=== PATIENT | female | born 1955 | race Caucasian/White ===

== ENCOUNTER → 2016-05-20 | Outpatient (CLI) | payer OTHER, MEDICARE, MEDICAID ==
--- NOTE | 2016-05-20 18:02 | Diagnostic Imaging Report ---
PROCEDURE: MRI right joint lower extremity without contrast. TECHNIQUE: Multiplanar, multisequence non contrast-enhanced MRI of the right lower extremity was accomplished. INDICATION: Right hip pain. COMPARISON: None. FINDINGS: Normal bone marrow signal. The hamstring origin is normal. There is minimal tendinosis of the gluteus minimus and medius tendon insertions. Mild chondromalacia of the right hip. The labrum is not well assessed on these conventional MR images. No large paralabral cyst. The visualized portions of the sciatic nerves and sacroiliac joints are normal. The visualized pelvic contents are negative. No soft tissue mass or fluid collections in the visualized soft tissues. IMPRESSION: Mild chondromalacia of the right hip. Mild tendinosis of the gluteus minimus and medius insertions. MRI of the right hip is otherwise unremarkable. Dictated by: Dictated on workstation # [id number]
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
== END ==
LOC: RAD 17:04
PROVIDERS: ATTEND Family Medicine
DX: M25.511 Pain in right shoulder (principal); M25.551 Pain in right hip
CPT/HCPCS: 73221; 73721

== ENCOUNTER 2018-09-27 05:40 | Outpatient (CLI) | payer MEDICARE, MEDICAID ==
[~2018-09-27] VITALS: Ht 160 cm; Wt 62.6 kg
[2018-09-27] MEDS ORDERED: HYDR-3820 PO (14:14)
[2018-09-27] MEDS ORDERED: LOSA50TA63 PO (14:14)
[2018-09-27] MEDS ORDERED: NALO25TA PO (14:14)
[2018-09-27] MEDS ORDERED: FLUO40CA PO (14:14)
[2018-09-27] MEDS ORDERED: ASPI-586 PO (14:14)
[2018-09-27] MEDS ORDERED: RT-ALBUINH IH (14:14)
[2018-09-27] MEDS ORDERED: ROPI2TAB4 PO (14:14)
[2018-09-27] MEDS ORDERED: FESO4TAB PO (14:14)
[2018-09-27] MEDS ORDERED: ATOR20TA49 PO (14:14)
== END 2018-09-27 14:22 | disposition home or self-care (01) ==
LOC: PREOP 05:40
PROVIDERS: ATTEND Specialist
DX: Z01.818 Encounter for other preprocedural examination (principal)

== ENCOUNTER 2018-09-29 10:46 | Day surgery (SDC) | payer MEDICARE, MEDICAID ==
[~2018-09-29] VITALS: Ht 160 cm; Wt 62.6 kg
[~2018-09-29 10:46] MED LIST: ASPI-586 PO; ATOR20TA49 PO; FESO4TAB PO; FLUO40CA PO; HYDR-3820 PO; LOSA50TA63 PO; NALO25TA PO; ROPI2TAB4 PO; RT-ALBUINH IH
[2018-09-29] MEDS ORDERED: LIDOCAINE PF 1% 2 ML AMP IR PRN (11:00)
[2018-09-29] MEDS ORDERED: TIMOLOL MALEATE 0.5% 5 ML (TIMOPTIC) BTL OU PRN (11:00)
[2018-09-29] MEDS ORDERED: POVIDONE (BETADINE) OPHTH SOLN 5% 30 ML OP ONE (11:00)
[2018-09-29] MEDS: TETRACAINE 0.5% OPHTH SOLN 4 ML BTL (SINGLE DOSE ONLY) OU PRN ×4 (11:00→11:22)
[2018-09-29] MEDS ORDERED: MOXIFLOXACIN OPHTH SOLN 5 MG/ML 0.3 ML SYRINGE OP ONE (11:00)
[2018-09-29 11:05] VITALS: BP 191/93
[2018-09-29] MEDS: PHENYLEPHRINE 10% OPHTH (NEO-SYN) 5 ML BTL OU SCH ×3 (11:11→11:22)
[2018-09-29] MEDS: CYCLOPENTOLATE 1% (CYCLOGYL) 2 ML DROPS OP SCH ×3 (11:11→11:22)
[2018-09-29] MEDS ORDERED: MIDAZOLAM 2 MG/2 ML (VERSED) VIAL ONE (11:57)
--- NOTE | 2018-09-29 11:57 | Ophthalmologist Pre-Op Note ---
Pre-Operative Progress Note H&P Reviewed The H&P was reviewed, patient examined and no changes noted. Date H&P Reviewed: Sep 29, 2018 Time H&P Reviewed: 11:57 Pre-Op Dx Cataract, Right Eye CHELO GOMEZ MD Sep 29, 2018 11:57
[2018-09-29] MEDS ORDERED: proPOfol 200 MG/20 ML (DIPRIVAN) VIAL IV ONE (12:13)
[2018-09-29] MEDS ORDERED: acetaZOLAMIDE ER 500 MG CAP (DIAMOX SEQUELS) PO ONE (12:30)
--- NOTE | 2018-09-29 12:34 | Ophthalmology Operative Report ---
Cataract removal/placement IOL PREOPERATIVE DIAGNOSIS: Cataract Left Eye POSTOPERATIVE DIAGNOSIS: Cataract Left Eye PROCEDURE: Cataract removal and placement of posterior chamber implant, left eye SURGEON: Jann Gomez ANESTHESIA: Topical with sedation COMPLICATIONS: None ESTIMATED BLOOD LOSS: Minimal DESCRIPTION OF PROCEDURE: After proper informed consent was obtained, the patient, a 63 female, was taken to the Operating Room and the left eye was anesthetized with tetracaine. The left eye was then prepped and draped in the usual manner. A wire lid speculum was placed. A paracentesis was made at the left hand position. Preservative free lidocaine was injected into the anterior chamber followed by viscoelastic. A clear corneal incision was made in the temporal position. A capsulorrhexis was preformed and the central nuclear and cortical material were removed. The posterior capsule was polished and an John 22.0 AU00T0 was placed into the capsular bag. The residual viscoelastic was aspirated and balanced saline solution was injected into the anterior chamber. Moxifloxacin was injected into the anterior chamber. The wound was checked and found to be water tight. The patient tolerated the procedure well without complications. JANN GOMEZ MD Sep 29, 2018 12:34
[2018-09-29 12:38] VITALS: BP 158/89
[2018-09-29 12:53] VITALS: BP 156/98
--- NOTE | 2018-09-29 12:53 | Anesthesia-General Post-Op ---
MAC Patient Condition Mental Status/LOC: Same as Preop Cardiovascular: Satisfactory Nausea/Vomiting: Absent Respiratory: Satisfactory Pain: Controlled Complications: Absent Post Op Complications Complications None Follow Up Care/Instructions Patient Instructions None needed. Anesthesiology Discharge Order Discharge Order Patient is doing well, no complaints, stable vital signs, no apparent adverse anesthesia problems. No complications reported per nursing. BALA GARCIA CRNA Sep 29, 2018 12:53
== END 2018-09-29 12:53 | disposition home or self-care (01) ==
LOC: SDC 10:46
PROVIDERS: ATTEND Specialist
DX: H25.12 Age-related nuclear cataract, left eye (principal); F17.290 Nicotine dependence, other tobacco product, uncomplicated; F32.9 Major depressive disorder, single episode, unspecified; E78.00 Pure hypercholesterolemia, unspecified; I10 Essential (primary) hypertension; E78.5 Hyperlipidemia, unspecified; J45.909 Unspecified asthma, uncomplicated; Z79.82 Long term (current) use of aspirin; Z79.899 Other long term (current) drug therapy; Z88.5 Allergy status to narcotic agent

== ENCOUNTER → 2018-10-11 | Outpatient (CLI) | payer MEDICARE, MEDICAID ==
[~2018-10-11] VITALS: Ht 160 cm; Wt 62.6 kg
== END | disposition home or self-care (01) ==
LOC: PREOP 05:36
PROVIDERS: ATTEND Specialist
DX: Z01.818 Encounter for other preprocedural examination (principal)

== ENCOUNTER 2018-10-13 08:50 | Day surgery (SDC) | payer MEDICARE, MEDICAID ==
[~2018-10-13] VITALS: Ht 160 cm; Wt 62.6 kg
[2018-10-13 09:05] VITALS: BP 158/98
[2018-10-13] MEDS ORDERED: POVIDONE (BETADINE) OPHTH SOLN 5% 30 ML OP ONE (09:15)
[2018-10-13] MEDS ORDERED: MOXIFLOXACIN OPHTH SOLN 5 MG/ML 0.3 ML SYRINGE OP ONE (09:15)
[2018-10-13] MEDS ORDERED: TIMOLOL MALEATE 0.5% 5 ML (TIMOPTIC) BTL OU PRN (09:15)
[2018-10-13] MEDS ORDERED: LIDOCAINE PF 1% 2 ML AMP IR PRN (09:15)
[2018-10-13] MEDS: TETRACAINE 0.5% OPHTH SOLN 4 ML BTL (SINGLE DOSE ONLY) OU PRN ×4 (09:18→09:45)
[2018-10-13] MEDS: CYCLOPENTOLATE 1% (CYCLOGYL) 2 ML DROPS OP SCH ×3 (09:31→09:45)
[2018-10-13] MEDS: PHENYLEPHRINE 10% OPHTH (NEO-SYN) 5 ML BTL OU SCH ×3 (09:31→09:45)
[2018-10-13] MEDS ORDERED: MIDAZOLAM 2 MG/2 ML (VERSED) VIAL ONE (09:58)
--- NOTE | 2018-10-13 09:59 | Ophthalmologist Pre-Op Note ---
Pre-Operative Progress Note H&P Reviewed The H&P was reviewed, patient examined and no changes noted. Date H&P Reviewed: Oct 13, 2018 Time H&P Reviewed: 09:58 Pre-Op Dx Cataract, Left Eye CHELO GOMEZ MD Oct 13, 2018 09:59
--- NOTE | 2018-10-13 10:27 | Ophthalmology Operative Report ---
Cataract removal/placement IOL PREOPERATIVE DIAGNOSIS: Cataract Left Eye POSTOPERATIVE DIAGNOSIS: Cataract Left Eye PROCEDURE: Cataract removal and placement of posterior chamber implant, left eye SURGEON: Jann Gomez ANESTHESIA: Topical with sedation COMPLICATIONS: None ESTIMATED BLOOD LOSS: Minimal DESCRIPTION OF PROCEDURE: After proper informed consent was obtained, the patient, a 63 female, was taken to the Operating Room and the left eye was anesthetized with tetracaine. The left eye was then prepped and draped in the usual manner. A wire lid speculum was placed. A paracentesis was made at the left hand position. Preservative free lidocaine was injected into the anterior chamber followed by viscoelastic. A clear corneal incision was made in the temporal position. A capsulorrhexis was preformed and the central nuclear and cortical material were removed. The posterior capsule was polished and an John 17.0 AU00T0 was placed into the capsular bag. The residual viscoelastic was aspirated and balanced saline solution was injected into the anterior chamber. Moxifloxacin was injected into the anterior chamber. The wound was checked and found to be water tight. The patient tolerated the procedure well without complications. JANN GOMEZ MD Oct 13, 2018 10:27
[2018-10-13 10:35] VITALS: BP 169/80
--- NOTE | 2018-10-13 10:59 | Anesthesia-General Post-Op ---
MAC Patient Condition Mental Status/LOC: Same as Preop Cardiovascular: Satisfactory Nausea/Vomiting: Absent Respiratory: Satisfactory Pain: Controlled Complications: Absent Post Op Complications Complications None Follow Up Care/Instructions Patient Instructions None needed. Anesthesiology Discharge Order Discharge Order Patient is doing well, no complaints, stable vital signs, no apparent adverse anesthesia problems. No complications reported per nursing. YAN ALTMAN CRNA Oct 13, 2018 10:58
[2018-10-13] MEDS ORDERED: acetaZOLAMIDE ER 500 MG CAP (DIAMOX SEQUELS) PO ONE (11:00)
== END 2018-10-13 10:35 | disposition home or self-care (01) ==
LOC: SDC 08:50
PROVIDERS: ATTEND Specialist
DX: H25.11 Age-related nuclear cataract, right eye (principal); F32.9 Major depressive disorder, single episode, unspecified; I10 Essential (primary) hypertension; J45.909 Unspecified asthma, uncomplicated; F17.210 Nicotine dependence, cigarettes, uncomplicated; E78.00 Pure hypercholesterolemia, unspecified; Z88.5 Allergy status to narcotic agent; Z88.6 Allergy status to analgesic agent; Z79.82 Long term (current) use of aspirin; Z79.891 Long term (current) use of opiate analgesic; Z79.899 Other long term (current) drug therapy; Z90.710 Acquired absence of both cervix and uterus; Z83.3 Family history of diabetes mellitus; Z82.49 Family history of ischemic heart disease and other diseases of the circulatory system

== ENCOUNTER → 2020-01-09 | Outpatient (CLI) | payer MEDICARE ==
[~2020-01-09] MED LIST changes: +ACHYD1T PO; +CATHETER FLUSH 10 ML SYR IV PRN; +HOLD METFORMIN - RECEIVED CONTRAST 20 ML VIAL IV SCH; -HYDR-3820 PO; +IOHEXOL 350 MG/ML 100 ML (OMNIPAQUE 350) VIAL IV ONE; +NS 100 ML (IVPB) BAG IV ONE; -ROPI2TAB4 PO; +ROPI2TAB6 PO
--- NOTE | 2020-01-09 13:42 | Diagnostic Imaging Report ---
PROCEDURE: CT abdomen and pelvis with contrast. TECHNIQUE: Multiple contiguous axial images were obtained through the abdomen and pelvis after administration of intravenous contrast. Auto Exposure Controls were utilized during the CT exam to meet ALARA standards for radiation dose reduction. All CT scans use one or more of the following dose optimizing techniques: automated exposure control, MA and/or KvP adjustment based on patient size and exam type or iterative reconstruction. INDICATION: Left lower quadrant abdominal pain. COMPARISON: No prior studies are available for comparison. FINDINGS: The lung bases demonstrate a tiny subpleural nodule in the posteromedial left lower lobe measuring 5 mm. This is indeterminate. No discrete liver mass is seen apart from a tiny low density left lobe measuring 3 mm. This is too small to characterize. The gallbladder is unremarkable. No biliary ductal dilatation is seen. The pancreas and spleen are unremarkable. No adrenal mass is detected. Both kidneys contain cortical low densities suggestive of cysts. The lesion on the right is in the lower pole measuring 3 cm. The lesion on the left is in the upper pole measuring 3 cm. No hydronephrosis is identified. The aorta and iliac vessels are heavily calcified but non-aneurysmal. The bowel loops are of normal caliber. No bowel obstruction is identified. There is a segment of wall thickening involving the sigmoid colon near the junction with the descending colon. No surrounding inflammatory stranding is seen. No free fluid or fluid collection is identified. The bladder is decompressed. The uterus appears to be surgically absent. There is no free air. The bony structures are nonacute. IMPRESSION: 1. Probable hepatic and renal cysts. 2. No acute feature in the abdomen or pelvis is seen. There is some mild wall thickening of the sigmoid colon without surrounding inflammation. Correlation with endoscopy would be useful, if not recently performed, to exclude underlying mass. The study is otherwise unremarkable. Dictated by: Dictated on workstation # [id number]
== END ==
LOC: RAD FS 12:31
PROVIDERS: ATTEND Nurse Practitioner Family
DX: R10.32 Left lower quadrant pain (principal); K63.89 Other specified diseases of intestine
CPT/HCPCS: 74177

== ENCOUNTER → 2020-05-09 | Outpatient (CLI) | payer MEDICARE ==
[~2020-05-09] MED LIST changes: -CATHETER FLUSH 10 ML SYR IV PRN; -HOLD METFORMIN - RECEIVED CONTRAST 20 ML VIAL IV SCH; -IOHEXOL 350 MG/ML 100 ML (OMNIPAQUE 350) VIAL IV ONE; -NS 100 ML (IVPB) BAG IV ONE
--- NOTE | 2020-05-09 15:34 | Diagnostic Imaging Report ---
INDICATION: Right hip arthritis. Pain. COMPARISON: None. FINDINGS: Single frontal radiographic view of the right hip was obtained. There is no fracture, dislocation, bone destruction, or radiopaque foreign body on this single frontal view. The visualized pelvic osseous structures and the SI joints appear intact. There is no bone destruction or radiopaque foreign body. The surrounding soft tissue structures are unremarkable. IMPRESSION: 1. Unremarkable single frontal radiographic view of the right hip. Dictated by: Dictated on workstation # [id number]
== END ==
LOC: RAD FS 13:44
DX: M46.1 Sacroiliitis, not elsewhere classified (principal); M25.551 Pain in right hip; G89.29 Other chronic pain; M16.11 Unilateral primary osteoarthritis, right hip
CPT/HCPCS: 73501

== ENCOUNTER → 2020-09-05 | Outpatient (CLI) | payer MEDICARE, MEDICAID ==
--- NOTE | 2020-09-05 12:59 | Diagnostic Imaging Report ---
CT Lung Screening INDICATION: 30 pack year smoking history cessation one month ago, patient has a history of colon cancer. TECHNIQUE: Noncontrast, low-dose CT imaging performed according to the lung cancer screening protocol. Auto Exposure Controls were utilize during the CT exam to meet ALARA standards for radiation dose reduction. COMPARISON: Baseline FINDINGS: There is a tiny 3 mm noncalcified nodule in the left lower lobe. No suspicious mass or dominant lesion. No spiculated opacity. No findings of edema or pneumonia. No thoracic effusion. No axillary hilar or mediastinal lymphadenopathy. The calcified atherosclerotic aorta is nonaneurysmal and there is coronary artery atherosclerotic vascular calcifications left and right. No acute soft tissue or osseous chest wall pathology. Upper abdomen shows a partially visualized left renal cortical cyst. IMPRESSION: Benign-appearing 3 mm left lower lobe nodule. No dominant or suspicious mass. Continued low-dose CT screening follow-up in one year's time. LUNG-RADS CATEGORY: Category 2 MODIFIER: None OTHER SIGNIFICANT FINDINGS: Aortic and coronary atherosclerotic vascular calcifications. Dictated by: Dictated on workstation # [id number]
== END ==
LOC: RAD 12:15
PROVIDERS: ATTEND Nurse Practitioner Family
DX: Z12.2 Encounter for screening for malignant neoplasm of respiratory organs (principal); R91.1 Solitary pulmonary nodule; F17.210 Nicotine dependence, cigarettes, uncomplicated
CPT/HCPCS: 71271

== ENCOUNTER 2021-01-29 10:08 | Outpatient (CLI) | payer MEDICARE, MEDICAID ==
[~2021-01-29] VITALS: Ht 160 cm; Wt 63.2 kg
[2021-01-29 09:54] VITALS: BP 141/74
[~2021-01-29 10:08] MED LIST changes: +ACETAMINOPHEN 500 MG TAB (TYLENOL) PO PRN; +CASIRIVIMAB/IMDEVIMAB 1,200 MG in NS (IVPB) 250 ML IV ONE; +EPINEPHrine INJECTION 1 MG/ML AMP IM PRN; +ONDANSETRON 4 MG/2 ML (SDV) Z0FRAN IV PRN; +diphenhydrAMINE 50 MG/ML INJ (BENADRYL) IV PRN
[2021-01-29 11:14] VITALS: BP 169/63
== END 2021-01-29 11:20 | disposition home or self-care (01) ==
LOC: INFUSION 10:08
PROVIDERS: ATTEND Allergy & Immunology
DX: U07.1 COVID-19 (principal)

== ENCOUNTER → 2021-06-05 | Outpatient (CLI) | payer MEDICARE, MEDICAID ==
[~2021-06-05] MED LIST changes: -ACETAMINOPHEN 500 MG TAB (TYLENOL) PO PRN; -CASIRIVIMAB/IMDEVIMAB 1,200 MG in NS (IVPB) 250 ML IV ONE; -EPINEPHrine INJECTION 1 MG/ML AMP IM PRN; -ONDANSETRON 4 MG/2 ML (SDV) Z0FRAN IV PRN; -diphenhydrAMINE 50 MG/ML INJ (BENADRYL) IV PRN
--- NOTE | 2021-06-05 12:46 | Diagnostic Imaging Report ---
INDICATION: Lower extremity claudication. TECHNIQUE: Segmental pulse pressures were performed of the upper and lower extremities. FINDINGS: Resting Doppler Blood Pressures RIGHT Brachial: 154 mmHg Ankle (Posterior Tibial): 121 mm Hg Ankle (Dorsalis Pedis): 108 mm Hg Index: 0.79 LEFT Brachial: 139 mmHg Ankle (Posterior Tibial): 154 mm Hg Ankle (Dorsalis Pedis): 141 mm Hg Index: 1.0 IMPRESSION: Ankle-brachial indices as above. Ankle-Brachial Index Diagnosis/Interpretation <=0.90 Peripheral Arterial Disease 0.91-0.99 Borderline 1.00-1.40 Normal >1.40 Concern for noncompressible arteries, (assoc with Diabetes Mellitus) Dictated by: Dictated on workstation # [id number]
== END ==
LOC: RAD 11:00
PROVIDERS: ATTEND Allergy & Immunology
DX: I73.9 Peripheral vascular disease, unspecified (principal)
CPT/HCPCS: 93922

== ENCOUNTER → 2022-04-28 | Outpatient (CLI) | payer MEDICARE, MEDICAID ==
[~2022-04-28] MED LIST changes: +ALBU8.5H6 IH; -RT-ALBUINH IH
--- NOTE | 2022-04-28 16:45 | Diagnostic Imaging Report ---
INDICATION: Claudication. COMPARISON: None. FINDINGS: Ankle-brachial indices were obtained bilaterally. ANNE MARIE on the right measures 0.83 and ANNE MARIE on the left measures 0.95. IMPRESSION: 1. Mildly diminished ankle-brachial index on the right suggestive of underlying mild arterial disease. Dictated by: Dictated on workstation # [id number]
== END ==
LOC: RAD 10:04
PROVIDERS: ATTEND Allergy & Immunology
DX: I73.9 Peripheral vascular disease, unspecified (principal)
CPT/HCPCS: 93923